=== PATIENT | male | born 2000 | race Caucasian/White ===

== ENCOUNTER 2022-02-12 07:00 | Inpatient (IN) | payer MEDICAID ==
[~2022-02-12] VITALS: Ht 182.9 cm; Wt 78.5 kg
[2022-02-12 11:45] VITALS: BP 138/68
[2022-02-12] MEDS: LORazepam 2 MG TABLET PO PRN (12:45)
[2022-02-12] MEDS: HALOPERIDOL 5 MG TABLET PO PRN (12:45)
[2022-02-12 16:13] VITALS: BP 135/82
[2022-02-12 20:26] VITALS: BP 128/78
[2022-02-12] MEDS: ZOLPIDEM TARTRATE 10 MG TABLET PO PRN (21:42)
[2022-02-13] MEDS ORDERED: ALBUTEROL SULFATE HFA 90 MCG/PUFF 8 GM INHALER IH PRN (07:15)
[2022-02-13] MEDS ORDERED: IBUPROFEN 600 MG TABLET PO PRN (07:15)
[2022-02-13] MEDS ORDERED: PETROLATUM,WHITE 28 GM JELLY TP PRN (07:15)
[2022-02-13] MEDS ORDERED: DOCUSATE SODIUM 100 MG CAPSULE PO PRN (07:15)
[2022-02-13] MEDS ORDERED: BENZOCAINE/MENTHOL LOZENGE PO PRN (07:15)
[2022-02-13] MEDS ORDERED: LOPERAMIDE HCL 2 MG CAPSULE PO PRN (07:15)
[2022-02-13] MEDS ORDERED: BACITRACIN 28 GM OINTMENT TP PRN (07:15)
[2022-02-13] MEDS ORDERED: CloNIDine HCL 0.1 MG TABLET PO PRN (07:15)
[2022-02-13] MEDS ORDERED: ACETAMINOPHEN 325 MG TABLET PO PRN (07:15)
[2022-02-13] MEDS ORDERED: MAGNESIUM HYDROXIDE SUSPENSION 30 ML UDCUP PO PRN (07:15)
[2022-02-13] MEDS ORDERED: ONDANSETRON HCL 4 MG TABLET PO PRN (07:15)
[2022-02-13] MEDS ORDERED: MAG HYDROX/AL HYDROX/SIMETH ES 30 ML SUSPENSION UDCUP PO PRN (07:15)
[2022-02-13] MEDS ORDERED: OMEPRAZOLE 20 MG CAPSULE PO PRN (07:15)
[2022-02-13 08:08] LABS: BASOPHILS % (AUTO) 0.2 % (0.0-2.0); EOSINOPHILS % (AUTO) 0.1 % (1.0-6.0); HEMATOCRIT 40.3 % (41-53); HEMOGLOBIN 13.9 g/dL (13.5-17.5); LYMPHOCYTES # (AUTO) 1.2 K/uL (1.0-4.8); LYMPHOCYTES % (AUTO) 15.7 % (22.0-44.0); MEAN CORPUSCULAR HEMOGLOBIN 31.5 pg (26.0-34.0); MEAN CORPUSCULAR HGB CONC 34.4 G/dL (31.0-37.0); MEAN CORPUSCULAR VOLUME 92 fL (80-100); MONOCYTES # (AUTO) 0.8 K/uL (0.1-1.0); MONOCYTES % (AUTO) 9.7 % (2.0-9.0); NEUTROPHILS # (AUTO) 5.9 K/uL (1.8-7.7); NEUTROPHILS % (AUTO) 74.3 % (40.0-70.0); PLATELET COUNT (AUTO) 237 K/uL (150-450); RED BLOOD CELL COUNT(AUTO) 4.41 MIL/uL (4.50-5.90)
[2022-02-13 08:25] LABS: HEMOGLOBIN A1C 5.2 % (3.8-5.6)
[2022-02-13 08:36] LABS: ALANINE AMINOTRANSFERASE 20 U/L (12-78); ALKALINE PHOSPHATASE 80 U/L (46-116); ANION GAP 11 mmol/L (8-16); ASPARTATE AMINOTRANSFERASE 17 U/L (15-37); BILIRUBIN,TOTAL 0.4 mg/dL (0.1-1.0); CALCIUM, TOTAL 9.2 mg/dL (8.8-10.5); CARBON DIOXIDE 26 mmol/L (22-29); CHLORIDE 104 mmol/L (98-107); CHOL/HDL RATIO 3.9 (4.2-7.3); CHOLESTEROL 156 mg/dL (131-200); CREATININE 1.04 mg/dL (0.60-1.30); FREE T4 (FREE THYROXINE) 1.38 ng/dL (0.76-1.46); GLOMERULAR FILTR. RATE CALC > 60 mL/min (>60); GLUCOSE,RANDOM 125 mg/dL (70-110); HDL CHOLESTEROL 40 mg/dL (40-60); LDL CHOL (CALC.) 104 mg/dL (0-130); POTASSIUM 3.7 mmol/L (3.5-5.1); SODIUM SERUM 141 mmol/L (136-145); THYROID STIMULATING HORMONE 0.72 uIU/mL (0.36-3.74); TOTAL PROTEIN, SERUM 7.5 g/dL (6.4-8.2); TRIGLYCERIDES 62 mg/dL (15-150); UREA NITROGEN, BLOOD 12 mg/dL (7-18)
[2022-02-13 10:22] VITALS: BP 124/70
[2022-02-13] MEDS: ZOLPIDEM TARTRATE 10 MG TABLET PO PRN (20:45)
[2022-02-13 23:19] VITALS: BP 124/70
[2022-02-14] MEDS: LORazepam 2 MG TABLET PO PRN ×2 (03:19→21:07)
[2022-02-14 09:24] VITALS: BP 133/73
[2022-02-14 20:03] VITALS: BP 140/90
[2022-02-14] MEDS: HALOPERIDOL 5 MG TABLET PO PRN (21:07)
[2022-02-15 09:51] VITALS: BP 131/79
[2022-02-15] MEDS: LORazepam 2 MG TABLET PO PRN ×2 (14:04→18:09)
[2022-02-15] MEDS: HALOPERIDOL 5 MG TABLET PO PRN (16:44)
[2022-02-15] MEDS: ZOLPIDEM TARTRATE 10 MG TABLET PO PRN (20:57)
[2022-02-15] MEDS: RisperiDONE 2 MG TABLET PO SCH (20:57)
[2022-02-15 21:01] VITALS: BP 117/64
[2022-02-16] MEDS: LORazepam 2 MG TABLET PO PRN ×2 (03:17→16:00)
[2022-02-16] MEDS: HALOPERIDOL 5 MG TABLET PO PRN ×2 (05:11→16:00)
[2022-02-16] MEDS: RisperiDONE 2 MG TABLET PO SCH ×2 (08:24→20:35)
[2022-02-16 16:43] VITALS: BP 129/88
[2022-02-16] MEDS: ZOLPIDEM TARTRATE 10 MG TABLET PO PRN (20:35)
[2022-02-16 21:41] VITALS: BP 129/88
[2022-02-17] MEDS: LORazepam 2 MG TABLET PO PRN ×2 (08:32→16:05)
[2022-02-17] MEDS: HALOPERIDOL 5 MG TABLET PO PRN ×2 (08:32→16:05)
[2022-02-17] MEDS: RisperiDONE 2 MG TABLET PO SCH ×2 (08:32→20:12)
[2022-02-17 08:40] VITALS: BP 112/56
[2022-02-17] MEDS: ZOLPIDEM TARTRATE 10 MG TABLET PO PRN (20:12)
[2022-02-17 20:38] VITALS: BP 125/75
[2022-02-18] MEDS: LORazepam 2 MG TABLET PO PRN ×3 (04:08→16:46)
[2022-02-18] MEDS: HALOPERIDOL 5 MG TABLET PO PRN ×4 (04:08→20:52)
[2022-02-18 08:05] LABS: GLUCOMETER DEV NAME(LOC) POC.BV
[2022-02-18] MEDS: RisperiDONE 2 MG TABLET PO SCH ×2 (08:28→20:44)
[2022-02-18 09:48] VITALS: BP 126/71
[2022-02-18] MEDS: ZOLPIDEM TARTRATE 10 MG TABLET PO PRN (20:44)
[2022-02-18 21:05] VITALS: BP 126/71
[2022-02-19] MEDS: RisperiDONE 2 MG TABLET PO SCH ×2 (08:15→20:28)
[2022-02-19] MEDS: HALOPERIDOL 5 MG TABLET PO PRN ×2 (08:15→17:06)
[2022-02-19] MEDS: LORazepam 2 MG TABLET PO PRN ×3 (08:15→21:12)
[2022-02-19 09:35] VITALS: BP 120/67
[2022-02-19 16:24] VITALS: BP 112/63
[2022-02-19 20:00] VITALS: BP 118/72
[2022-02-19] MEDS: ZOLPIDEM TARTRATE 10 MG TABLET PO PRN (20:28)
[2022-02-20] MEDS: LORazepam 2 MG TABLET PO PRN ×2 (08:27→16:43)
[2022-02-20] MEDS: RisperiDONE 2 MG TABLET PO SCH ×2 (08:27→20:42)
[2022-02-20] MEDS: HALOPERIDOL 5 MG TABLET PO PRN ×2 (08:27→16:43)
[2022-02-20 08:38] VITALS: BP 110/65
[2022-02-20 21:30] VITALS: BP 117/60
[2022-02-21] MEDS: HALOPERIDOL 5 MG TABLET PO PRN (08:37)
[2022-02-21] MEDS: LORazepam 2 MG TABLET PO PRN ×2 (08:37→13:03)
[2022-02-21] MEDS: RisperiDONE 2 MG TABLET PO SCH ×2 (08:37→20:18)
[2022-02-21 09:47] VITALS: BP 126/73
[2022-02-21 20:46] VITALS: BP 102/75
[2022-02-22 08:29] VITALS: BP 115/76
[2022-02-22] MEDS: RisperiDONE 2 MG TABLET PO SCH ×2 (09:37→20:11)
[2022-02-22] MEDS: HALOPERIDOL 5 MG TABLET PO PRN (12:57)
[2022-02-22] MEDS: LORazepam 2 MG TABLET PO PRN (15:15)
[2022-02-22] MEDS: ZOLPIDEM TARTRATE 10 MG TABLET PO PRN (20:11)
[2022-02-22 20:57] VITALS: BP 124/77
[2022-02-23 08:41] VITALS: BP 119/70
[2022-02-23] MEDS: RisperiDONE 2 MG TABLET PO SCH ×2 (10:04→20:35)
[2022-02-23] MEDS: HALOPERIDOL 5 MG TABLET PO PRN (17:05)
[2022-02-23] MEDS: LORazepam 2 MG TABLET PO PRN (17:05)
[2022-02-23] MEDS: ZOLPIDEM TARTRATE 10 MG TABLET PO PRN (20:14)
[2022-02-23 20:53] VITALS: BP 122/72
[2022-02-24 08:43] VITALS: BP 100/67
[2022-02-24] MEDS: RisperiDONE 2 MG TABLET PO SCH ×2 (10:02→21:30)
[2022-02-24] MEDS: LORazepam 2 MG TABLET PO PRN (13:14)
[2022-02-24] MEDS: HALOPERIDOL 5 MG TABLET PO PRN (13:38)
[2022-02-24 20:36] VITALS: BP 125/71
[2022-02-25 07:56] LABS: GLUCOMETER DEV NAME(LOC) POC.BV
[2022-02-25] MEDS: LORazepam 2 MG TABLET PO PRN ×2 (09:15→17:02)
[2022-02-25] MEDS: RisperiDONE 2 MG TABLET PO SCH (09:15)
[2022-02-25 09:19] VITALS: BP 110/65
[2022-02-25] MEDS ORDERED: RISP2TAB45 PO (13:01)
[2022-02-25] MEDS: HALOPERIDOL 5 MG TABLET PO PRN (17:01)
== END 2022-02-25 19:21 | disposition home or self-care (01) | DRG 750 ==
LOC: B3A 11:37
PROVIDERS: ADMIT Psychiatry & Neurology Psychiatry; ATTEND Psychiatry & Neurology Psychiatry
DX: F20.9 Schizophrenia, unspecified (principal); F19.10 Other psychoactive substance abuse, uncomplicated; G47.00 Insomnia, unspecified; F41.9 Anxiety disorder, unspecified; K59.00 Constipation, unspecified; Z20.822 Contact with and (suspected) exposure to COVID-19
CPT/HCPCS: 80053; 80061; 83036; 84436; 84439; 84443; 85025; 86592; G0480